=== PATIENT | female | born 1990 | race African-American/Black ===

== ENCOUNTER 2020-02-07 23:23 | Emergency (ER) | payer MEDICAID, OTHER ==
[~2020-02-07] VITALS: Ht 172.7 cm; Wt 133.1 kg
[2020-02-07 23:26] VITALS: BP 128/82
== END 2020-02-07 23:52 | disposition home or self-care (01) ==
LOC: ED 23:50
DX: M79.671 Pain in right foot (principal); M79.672 Pain in left foot; F17.200 Nicotine dependence, unspecified, uncomplicated
CPT/HCPCS: 99281